=== PATIENT | female | born 1985 | race African-American/Black ===

== ENCOUNTER 2016-09-19 20:57 | Inpatient (IN) ==
[2016-09-19 21:33] LABS: Apearance,Urine CLEAR (Clear); Bacteria,Urine Occasional /HPF (Few); Blood, Urine Negative (Negative); Glucose,Urine (UA) Negative (Negative); Ketones,Urine Negative (Negative); Mucus,Urine Occasional /LPF (Occasional); Nitrite,Urine Negative (Negative); Protein,Urine 30 MG/DL; RBC,Urine <1 /HPF (0-4); Squamous Epithelial Cell,Urine Occasional /HPF (0-10); Urine Color Yellow (Yellow); Urine Specific Gravity 1.019 (1.001-1.035); WBC,Urine 4 /HPF (0-6)
[2016-09-19 21:34] LABS: Bilirubin,Urine Small mg/dL (Negative)
[2016-09-19] MEDS ORDERED: LACTATED RINGERS 250 ML IV ONE (23:21)
[2016-09-19] MEDS ORDERED: MEPERIDINE 50 MG/1 ML VIAL IM PRN (23:21)
[2016-09-19] MEDS ORDERED: BUTORPHANOL 1 MG/ML VIAL IV PRN (23:21)
[2016-09-19 23:49] LABS: Basophils % 0.3 % (0.0-0.8); Eosinophils # 0.1 10*3/uL (0.0-0.87); Eosinophils % 1.6 % (0.00-10.9); Hematocrit 26.3 VOL% (35.7-47.0); Hemoglobin 8.5 GM/DL (12.0-16.0); Immature Granulocytes % 0.3 %; Immature Granulocytes Absolute 0.02 #; Lymphocytes # 1.2 10*3/uL (1.4-4.0); Mean Corpuscular HGB Conc 32.3 GM/DL (32-36); Mean Corpuscular Hemoglobin 24 PG (27-34); Mean Corpuscular Volume 75.6 FL (87-102); Mean Platelet Volume 11.4 FL (9.6-12.0); Monocytes # 0.5 10*3/uL (0.11-0.8); Monocytes % 7.7 % (1.7-12.7); Neutrophils % 73.1 % (38.7-73.9); Platelet Count 101 T/CUMM (130-400); Red Blood Count 3.48 MC/CUMM (3.8-5.5); Red Cell Distribution Width 14.6 % (9.3-17.3); White Blood Count 6.8 T/CUMM (4-12)
[2016-09-19] MEDS: LACTATED RINGERS 1,000 ML IV SCH (23:56)
[2016-09-20] MEDS: ONDANSETRON 4 MG/2 ML VIAL IV PRN ×2 (00:19→10:07)
[2016-09-20] MEDS: MEPERIDINE 50 MG/1 ML VIAL IV PRN ×2 (00:31→10:06)
[2016-09-20] MEDS ORDERED: AMPICILLIN 2,000 MG VIAL IM ONE (02:23)
[2016-09-20] MEDS ORDERED: SODIUM CHLORIDE 0.9% 100 ML IV ONE (02:34)
[2016-09-20] MEDS ORDERED: AMPICILLIN 2,000 MG VIAL IV ONE (03:00)
[2016-09-20] MEDS ORDERED: hydrOXYzine HCL 25 MG/1 ML VIAL IM PRN (03:37)
[2016-09-20] MEDS ORDERED: fentaNYL 2 MCG/ROPIV 0.2% EPID 150 ML EPIDURAL SCH (03:37)
[2016-09-20] MEDS ORDERED: ePHEDrine 50 MG/ML AMP IV PRN (03:37)
[2016-09-20] MEDS ORDERED: PROMETHAZINE 25 MG/1 ML VIAL IM ONE (03:37)
[2016-09-20] MEDS ORDERED: diphenhydrAMINE 50 MG/1 ML VIAL IV PRN ×2 (03:37)
[2016-09-20] MEDS ORDERED: FAMOTIDINE 20 MG/2 ML VIAL IV ONE (03:45)
[2016-09-20] MEDS ORDERED: CITRIC ACID/SODIUM CITRATE 30 ML UDCUP PO ONE (03:45)
[2016-09-20] MEDS: LACTATED RINGERS 1,000 ML IV SCH ×2 (03:54→23:25)
[2016-09-20] MEDS ORDERED: TERBUTALINE 1 MG/1 ML VIAL SUBCUT ONE ×2 (04:40→06:02)
--- NOTE | 2016-09-20 06:29 | Ultrasound Report ---
Exam: US OB limited Date: 09/19/2016 9:44 PM Indication: Rupture of membranes, contractions, reported gestational age 38 weeks 2 days Comparison: None available Findings: Single fetus in cephalic presentation with cardiac activity. Heart rate is regular at 150 bpm. Placenta is anterior with no previa. biometry was not performed Amniotic fluid index: 3.49 cm, compatible with oligohydramnios Estimated weight: Not calculated Cervical length: Cervix was not visualized. structures: Structural survey not performed. Maternal ovaries were not visualized. Ultrasound images were captured and stored. Impression: 1. Single fetus in cephalic presentation with cardiac activity. 2. Oligohydramnios. remote sensing technologist documents discussion of the critical findings with the patient's nurse at the time of the study. PROCEDURE INTERPRETED AT [facility] DEPARTMENT OF RADIOLOGY Final Report Signed by: Randy Shannon
[2016-09-20] MEDS ORDERED: AMPICILLIN INJ 1,000 MG in SODIUM CHLORIDE 0.9% 100 ML IV SCH (06:30)
[2016-09-20] MEDS ORDERED: OXYTOCIN/LR 20 UNIT/1,000 ML BAG IV ONE ×2 (06:33→07:36)
[2016-09-20] MEDS ORDERED: ONDANSETRON 4 MG/2 ML VIAL ONE (06:33)
[2016-09-20] MEDS ORDERED: PROPOFOL 200 MG/20 ML VIAL IV ONE (06:33)
[2016-09-20] MEDS ORDERED: PHENYLEPHRINE 1 MG/10 ML SYRINGE IV ONE (06:33)
[2016-09-20] MEDS ORDERED: SUCCINYLCHOLINE 200 MG/10 ML VIAL ONE (06:33)
[2016-09-20] MEDS ORDERED: OXYTOCIN 10 UNIT/ML VIAL ONE (06:43)
[2016-09-20] MEDS ORDERED: RHO(D) IMMUNE GLOBULIN 300 MCG SYRINGE IM ONE (07:36)
[2016-09-20] MEDS ORDERED: ACETAMINOPHEN 325 MG TABLET PO PRN (07:36)
[2016-09-20] MEDS ORDERED: ONDANSETRON 4 MG/2 ML VIAL IV PRN (07:36)
[2016-09-20] MEDS ORDERED: MAGNESIUM HYDROXIDE SUSP 30 ML UDCUP PO PRN (07:36)
--- NOTE | 2016-09-20 07:36 | Operative Note ---
Date of procedure: 09/20/16 Procedure: Preoperative diagnosis: Persistent bradycardia, spontaneous rupture membranes, actively Postoperative diagnosis: Same Anesthesia:[] General anesthesia Estimated blood loss: [] 300 cc Surgeon: Dr. Augustine Findings: [] Live female infant ,Apgars was 8 at 1 minute 9 at 5 minutes , delivery time was 645, weight was 6 lbs. 5 oz. Complications: None, was occiput posterior, no amniotic fluid Procedure: Low transverse section The patient was taken to the operating suite heart tones were obtained prior to and after regional anesthesia was obtained. She was placed in supine position her abdomen was prepped and draped in usual manner for major abdominal surgery. Through an abdominal incision the skin, subcutaneous, fascial layer and peritoneal the abdomen was entered. The bladder flap was created and a low transverse incision was made.. Fluid was clear and absent X, Apgars, the placenta was delivered and sent to lab for further evaluation. Injected with intrauterine Pitocin. The first layer of the uterus was closed with #1 Vicryl in a continuous locking manner. Close to imbricate the first layer with #1 Vicryl. The peritoneum was approximated with #2-0 Vicryl.[] All the last sponges and instruments were accounted for -2.) #2-0 Vicryl. Fascia was approximated with #0-0 Maxon.. The skin was approximated with dominique. She tolerated procedure well and was taken to recovery room in stable condition. Surgeon / Physician: Judith Augustine Results - Labs CBC & BMP: 09/19/16 23:40 Discharge Plan - Discharge Medications No Action Vits #90/Iron Fum/FA [ Formula Tablet] 1 tablet PO DAILY Ferrous Sulfate [Iron] 1 tablet PO DAILY - Follow Up or Referral - Forms/Instructions
--- NOTE | 2016-09-20 07:37 | Anesthesia Post-Op ---
Anesthesia Post OP - Post Ansesthetic Evaluation Patient seen in post op: Yes Resp: within normal limits CV: within normal limits Mental: within normal limits Temp: within normal limits [id number]: within normal limits Nausea and Vomiting: within normal limits Pain: within normal limits
--- NOTE | 2016-09-20 07:41 | OB/GYN History & Physical ---
History of Present Illness Chief complaint: Spontaneous rupture membranes, at 38 weeks and 6 days History of present illness: Ms. Narayan is a 30 year old female 7 para 5 EDC is 10/01/2016 admitted with spontaneous rupture membranes at 38 weeks and 6 days. Ultrasound demonstrated no amniotic fluid, vertex presentation. Patient developed multiple areas of variable deceleration and subsequently prolonged areas of bradycardia. In light of these findings after trying to resuscitate this patient with positioning, IV fluids, subcu Brethine, and a scalp electrode was unsuccessful. This patient was prepared for emergency section secondary to bradycardia. Home Medications Medication Instructions Recorded Confirmed Type Ferrous Sulfate [Iron] 1 tablet PO DAILY 09/08/16 09/08/16 History Vits #90/Iron Fum/FA 1 tablet PO DAILY 09/08/16 09/08/16 History [ Formula Tablet] Allergies Allergy/AdvReac Type Severity Reaction Status Date / Time No Known Allergies Allergy Verified 07/22/14 06:53 Medical,Surgical,& Family Hx - Medical History Cardio: No history of: Congenital Heart Disease Neurology: No history of: Brain Aneurysm, Seizures Respiratory: No history of: Asthma, Respiratory Problems Musculoskeletal: No history of: Amputation Hematology: No history of: Blood Transfusion Reaction Reproductive: No history of: Abnormal Pap Smear, Breast Cancer, Ectopic , Complication, Reproductive Problems (1 miscarriage) Comment Only: Ovarian Cysts (fibroids myomectomy) Other: No history of: Anesthesia Reactions, Anaphylaxis, Cancer, Eczema, HIV - Surgical History Cardiac Surgeries: Patient Denies: Cardiac Catheterization Thoracic Surgeries: Patient denies;: Organ Transplant, Lobectomy Neurologic Surgeries: Patient denies: Brain Aneurysm, Neurologic Surgery HEENT Surgeries: Patient denies: Eye Surgery, Tonsilectomy & Adenoidectomy Abdominal Surgeries: Surgical HX of: Abdominal Surgery (FIBROIDS), Hernia Repair (at age 6) Reproductive Surgeries: Surgical HX of;: Dilation and Curettage (JUNE 24, 2014) , Tubal Ligation Patient denies;: Section, Genitourinary Surgery, Gynecologic Surgery - Family History Family History: Reports;: Family Cancer (FATHER REANAL), Family Diabetes (DAD), Family Heart Disease (DAD), Family Hypertension (DAD), Family Psychiatric Problems Denies;: Family Anesthesia Reaction, Family Hematology, Family Stroke - Social History Smoking Status: Never smoker Frequency of Alcohol Use: None Type of Drug Use: Marijuana 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 Vitals: Vital Signs Temp Pulse Resp BP Pulse Ox 09/20/16 00:00 68 18 121/60 09/19/16 23:00 98.7 F 78 20 125/77 09/19/16 22:00 72 20 108/58 09/19/16 21:18 97.0 F L 85 20 128/75 100 General appearance: no acute distress - Antepartum / Post Antepartum Exam Cervix - Dilatation: 7 8 cm dilated at the time of the primary section Presentation: Vertex, occiput posterior - Head Head exam: Present: normal inspection - Eye Eye exam: Present: EOMI Pupils: Present: KIMBERLEY - ENT ENT exam: Present: normal exam - Neck Neck exam: Present: normal inspection - Respiratory Respiratory exam: Present: clear to auscultation bilaterally - Breast Breasts: as per HPI Menstruation: as per HPI - Cardiovascular Cardiovascular exam: Present: regular rate and rhythm - GI/Abdominal GI/Abdominal exam: Present: normal bowel sounds - Extremities Exam Extremities exam: Present: normal inspection - Back Exam Back exam: Present: normal inspection - Neurological Exam Neurological exam: Present: alert, oriented X3, normal gait - Psychiatric Psychiatric exam: Present: normal affect - Skin Skin exam: Present: normal color Assessment and Plan (1) Failure to progress in labor Status: Acute Assessment and plan: Primary section, occiput posterior, persistent bradycardia Current Visit: Yes Results - Labs CBC & BMP: 09/19/16 23:40 Quality Measures - VTE Contraindication to Pharmacological VTE Prophylaxis: Clinical assessment deems Pt at low risk, no prophalaxis needed
[2016-09-20 07:52] LABS: Apearance,Urine CLEAR (Clear); Bacteria,Urine Occasional /HPF (Few); Bilirubin,Urine Negative (Negative); Blood, Urine Small mg/dL (Negative); Glucose,Urine (UA) Negative (Negative); Ketones,Urine 20 mg/dL (Negative); Mucus,Urine Many /LPF (Occasional); Nitrite,Urine Negative (Negative); Protein,Urine 30 MG/DL; RBC,Urine 30 /HPF (0-4); Squamous Epithelial Cell,Urine Occasional /HPF (0-10); Urine Specific Gravity 1.028 (1.001-1.035); WBC,Urine 1 /HPF (0-6)
[2016-09-20 07:53] LABS: Urine Color Yellow (Yellow)
[2016-09-20] MEDS: HYDROmorphone 2 MG/1 ML VIAL IV PRN ×4 (10:50→23:07)
[2016-09-20] MEDS ORDERED: HYDROmorphone 2 MG/1 ML VIAL ONE (10:50)
[2016-09-20 14:34] LABS: Basophils % 0.1 % (0.0-0.8); Eosinophils % 0.4 % (0.00-10.9); Hemoglobin 7.1 GM/DL (12.0-16.0); Immature Granulocytes % 0.4 %; Immature Granulocytes Absolute 0.04 #; Lymphocytes # 0.6 10*3/uL (1.4-4.0); Lymphocytes % 6.8 % (21.3-54.2); Mean Corpuscular HGB Conc 32.3 GM/DL (32-36); Mean Corpuscular Hemoglobin 25 PG (27-34); Mean Corpuscular Volume 75.9 FL (87-102); Mean Platelet Volume 10.9 FL (9.6-12.0); Monocytes # 0.5 10*3/uL (0.11-0.8); Neutrophils # 7.8 10*3/uL (1.4-7.4); Neutrophils % 86.3 % (38.7-73.9); Platelet Count 76 T/CUMM (130-400); Red Cell Distribution Width 14.7 % (9.3-17.3); White Blood Count 9.1 T/CUMM (4-12)
[2016-09-20] MEDS ORDERED: SODIUM CHLORIDE 0.9% 250 ML IV PRN (15:12)
[2016-09-20] MEDS ORDERED: SODIUM CHLORIDE 0.9% 1,000 ML IV PRN (15:24)
[2016-09-20] MEDS: SIMETHICONE CHEW 80 MG TABLET PO PRN (19:39)
[2016-09-20] MEDS: DOCUSATE SODIUM 100 MG CAPSULE PO SCH ×2 (21:03→22:38)
[2016-09-20] MEDS: MULTIVITAMIN (PRENATAL) TABLET PO SCH (22:38)
[2016-09-21] MEDS ORDERED: BENZOCAINE/MENTHOL LOZENGE 18/BOX PO PRN (00:46)
[2016-09-21] MEDS ORDERED: diphenhydrAMINE 50 MG/1 ML VIAL IV PRN (00:46)
[2016-09-21] MEDS: HYDROmorphone 2 MG/1 ML VIAL IV PRN (05:08)
[2016-09-21 06:30] LABS: Basophils % 0.2 % (0.0-0.8); Eosinophils # 0.1 10*3/uL (0.0-0.87); Hemoglobin 8.1 GM/DL (12.0-16.0); Immature Granulocytes % 0.6 %; Immature Granulocytes Absolute 0.05 #; Lymphocytes # 0.5 10*3/uL (1.4-4.0); Lymphocytes % 5.7 % (21.3-54.2); Mean Corpuscular HGB Conc 32.4 GM/DL (32-36); Mean Corpuscular Hemoglobin 25 PG (27-34); Mean Corpuscular Volume 77.2 FL (87-102); Mean Platelet Volume 12.5 FL (9.6-12.0); Monocytes # 0.6 10*3/uL (0.11-0.8); Monocytes % 6.5 % (1.7-12.7); Neutrophils # 7.5 10*3/uL (1.4-7.4); Platelet Count 85 T/CUMM (130-400); Red Blood Count 3.24 MC/CUMM (3.8-5.5); Red Cell Distribution Width 14.6 % (9.3-17.3); White Blood Count 8.7 T/CUMM (4-12)
[2016-09-21] MEDS: LACTATED RINGERS 1,000 ML IV SCH (06:30)
[2016-09-21 07:09] LABS: Eosinophils 1 % (0-10); Hypochromasia 1+; Lymphocytes 5 % (20-55); Microcytosis 1+; Platelet Estimate Decreased; Segmented Neutrophils 92 % (50-85); Total Cells Counted 100
[2016-09-21] MEDS: MULTIVITAMIN (PRENATAL) TABLET PO SCH (08:22)
[2016-09-21] MEDS: DOCUSATE SODIUM 100 MG CAPSULE PO SCH ×2 (08:22→22:18)
[2016-09-21] MEDS: FERROUS SULFATE 325 MG TABLET PO SCH ×3 (08:22→22:18)
--- NOTE | 2016-09-21 09:58 | OB/GYN Progress Note ---
Assessment and Plan (1) Status post primary low transverse section Status: Acute Assessment and plan: Initiate routine orders. Current Visit: Yes LANE ATTENDANT - PN: Subj Interval history: Stable with no complaints. Bonding well with . Exam LANE ATTENDANT - Constitutional Vitals: Vital Signs Temp Pulse Pulse Resp BP BP Pulse Ox 09/21/16 07:41 97 F L 62 18 128/79 09/21/16 06:15 18 09/21/16 04:15 97.4 F L 64 20 123/70 09/21/16 02:20 16 09/21/16 00:20 98.2 F 71 16 115/65 96 09/21/16 00:15 98.1 F 78 16 120/69 09/20/16 22:39 98.3 F 60 16 118/73 97 09/20/16 21:39 97.1 F L 63 18 120/68 96 09/20/16 21:09 97.6 F 63 20 123/69 98 09/20/16 21:04 97.4 F L 63 18 132/70 09/20/16 20:59 97.7 F 65 18 122/66 98 09/20/16 20:50 97.5 F L 68 20 120/67 99 09/20/16 20:01 97.6 F 61 20 124/74 98 09/20/16 19:30 97.4 F L 67 20 137/80 09/20/16 18:50 97.4 F L 61 18 125/72 99 09/20/16 17:54 20 09/20/16 17:50 97.2 F L 61 18 121/73 99 09/20/16 17:20 97.2 F L 61 18 124/70 99 09/20/16 17:15 97.2 F L 61 18 126/69 99 09/20/16 17:10 98.0 F 63 18 123/71 99 09/20/16 17:02 98.3 F 62 18 122/69 99 09/20/16 16:00 98.3 F 63 18 116/69 09/20/16 13:25 61 20 121/71 09/20/16 12:25 81 18 116/65 09/20/16 11:25 71 18 114/65 09/20/16 10:55 70 18 129/75 09/20/16 10:25 97.2 F L 73 18 123/75 Pulse Ox 09/21/16 07:41 96 09/21/16 06:15 09/21/16 04:15 96 09/21/16 02:20 09/21/16 00:20 09/21/16 00:15 96 09/20/16 22:39 09/20/16 21:39 09/20/16 21:09 09/20/16 21:04 09/20/16 20:59 09/20/16 20:50 09/20/16 20:01 09/20/16 19:30 96 09/20/16 18:50 09/20/16 17:54 09/20/16 17:50 09/20/16 17:20 09/20/16 17:15 09/20/16 17:10 09/20/16 17:02 09/20/16 16:00 97 09/20/16 13:25 99 09/20/16 12:25 99 09/20/16 11:25 99 09/20/16 10:55 99 09/20/16 10:25 99 General appearance: no acute distress - Gyencological / Post Surgical Post Surgical Exam Lungs: bilateral: normal, crackles/rales, diminished at base, diminished throughout, prolonged expiration, prolonged inspiration, rhonchi, wheezes Chest: Normal S1, Normal S2 Extremities LANE ATTENDANT: Present: normal Abdomen obstetrics progress note: Present: normal appearance Incision OB: Present: normal, intact - Head Head exam: Present: normal inspection - Respiratory Respiratory exam: Present: clear to auscultation bilaterally - Cardiovascular Cardiovascular exam: Present: regular rate and rhythm - GI/Abdominal GI/Abdominal exam: Present: normal bowel sounds, soft - Extremities Exam Extremities exam: Present: normal inspection - Neurological Exam Neurological exam: Present: alert, oriented X3 - Psychiatric Psychiatric exam: Present: normal affect, normal mood - Skin Skin exam: Present: normal color, warm Results - Labs CBC & BMP: 09/21/16 05:45
--- NOTE | 2016-09-21 13:22 | Pathology Report from [facility] ---
[facility] [place] [id number] PATIENT NAME : Stephen Brito ORDERING DR : GLENROY AVILA MD CLINICAL HX: Primary C/S delivery for distress POST-OP DX: Same SPECIMEN INFO: Placenta GROSS DESCRIPTION: Received fresh labeled STEPHEN BRITO & PLACENTA is a 427 gm placenta measuring 18.5 x 15.0 x 2.8 cm. The membranes are pink kelly and translucent. The umbilical cord measures 10.5 cm, contains three vessels and is inserted near the placenta margin. The surface is blue james with a few small areas of subchorionic fibrin noted measuring up to 2.5 x 1.5 cm. The maternal surface is red james and mildly disrupted with no abnormalities appreciated upon sectioning. Section submitted A- membranes and cord, B- and maternal surfaces. DIAGNOSIS FOR STEPHEN BRITO: PLACENTA, DELIVERY: Mature placenta , 427 grams. Very focal acute chorioamnionitis. Trivascular umbilical cord, 10.5 cm in length. Focal subchorionic fibrin. COLLECTED DATE: 09/20/2016 [facility] REPORT DATE: 09/21/2016 ELECTRONICALLY SIGNED BY: Renea Wan M.D. 09/21/2016 - 11:07:44 JULIO
[2016-09-21] MEDS: SIMETHICONE CHEW 80 MG TABLET PO PRN ×2 (15:11→22:18)
[2016-09-21] MEDS: IBUPROFEN 800 MG TABLET PO PRN (16:32)
[2016-09-22] MEDS: DOCUSATE SODIUM 100 MG CAPSULE PO SCH ×2 (08:27→20:21)
[2016-09-22] MEDS: MULTIVITAMIN (PRENATAL) TABLET PO SCH (08:27)
[2016-09-22] MEDS: FERROUS SULFATE 325 MG TABLET PO SCH ×3 (08:27→20:21)
--- NOTE | 2016-09-22 09:32 | OB/GYN Progress Note ---
Assessment and Plan (1) Status post primary low transverse section Status: Acute Assessment and plan: Initiate routine orders. 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 Bonding well with . 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 MANAGER - Constitutional Vitals: Vital Signs Temp Pulse Resp BP Pulse Ox 09/22/16 07:52 20 09/22/16 07:16 97.1 F L 71 20 131/74 98 09/22/16 06:00 18 09/22/16 04:00 96.3 F L 66 18 128/74 97 09/22/16 00:00 96.7 F L 76 18 145/76 95 09/21/16 20:00 97.4 F L 61 18 140/69 99 09/21/16 15:37 97.3 F L 71 20 136/78 98 09/21/16 11:40 97.8 F 63 20 106/64 98 09/21/16 11:14 97.8 F 63 20 122/62 96 General appearance: no acute distress - Antepartum / Post Post Exam Breast: bilateral: normal Abdomen obstetrics: Present: bowel sounds normal Vagina: Present: normal moisture, discharge (Light lochia room) Uterus exam: Present: enlarged - Gyencological / Post Surgical Post Surgical Exam Lungs: bilateral: normal Chest: Normal S1, Normal S2 Extremities AUTOMOTIVE CENTER MANAGER: Present: normal Abdomen obstetrics progress note: Present: normal appearance Incision OB: Present: normal, intact - Respiratory Respiratory exam: Present: clear to auscultation bilaterally - Cardiovascular Cardiovascular exam: Present: regular rate and rhythm - GI/Abdominal GI/Abdominal exam: Present: normal bowel sounds, soft - Extremities Exam Extremities exam: Present: normal inspection - Back Exam Back exam: Present: normal inspection - Neurological Exam Neurological exam: Present: alert, oriented X3 - Psychiatric Psychiatric exam: Present: normal affect, normal mood - Skin Skin exam: Present: normal color, warm Results - Labs CBC & BMP: 09/21/16 05:45
[2016-09-22] MEDS: IBUPROFEN 800 MG TABLET PO PRN (11:58)
[2016-09-22] MEDS ORDERED: MAGNESIUM CITRATE 300 ML BOTTLE PO ONE (14:01)
[2016-09-23] MEDS: IBUPROFEN 800 MG TABLET PO PRN (05:20)
[2016-09-23 07:27] VITALS: BP 145/72
[2016-09-23] MEDS: DOCUSATE SODIUM 100 MG CAPSULE PO SCH (08:46)
[2016-09-23] MEDS: MULTIVITAMIN (PRENATAL) TABLET PO SCH (08:46)
[2016-09-23] MEDS: FERROUS SULFATE 325 MG TABLET PO SCH (08:46)
--- NOTE | 2016-09-23 08:46 | Discharge Summary ---
Hospital Course - Hospital Course Hospital Course: Status post section post op day #3 lungs are clear, cardiac exam benign , incision sites intact Uterus is nice and firm Extremities well with no limits Neurologically grossly intact Status post section We will discharge today follow-up her office in approximately 6 weeks. Diagnosis - Discharge Diagnosis (1) Failure to progress in labor Status: Acute Specialty Discharge - Follow Up or Referrals Follow up with: Judith Augustine MD [Physician] - Discharge Plan - Discharge Data Condition at Discharge: Stable Discharge Diet: advance to your usual diet Activity: resume usual activities as tolerated Hygiene: no restrictions Weight Bearing at Discharge: full weight bearing, weight bear as tolerated Driving: not until seen by doctor Contact your physician if you experience:: fever over 101, Shortness of breath, Bleeding - Discharge Medications New Ferrous Sulfate Tab [Feosol Original Tab] 325 mg PO TID #60 tablet HYDROcodone/ACETAMIN 5-325 [[place] 5-325] 1 tablet PO Q6H PRN #45 tablet PRN Reason: Pain Moderate (4-7) Ibuprofen Tab [Motrin Tab] 800 mg PO Q8H PRN #30 tablet PRN Reason: Pain Severe (8-10) Continue Ferrous Sulfate [Iron] 1 tablet PO DAILY #60 No Action Vits #90/Iron Fum/FA [ Formula Tablet] 1 tablet PO DAILY - Follow Up or Referral Follow Up: Judith Augustine MD [Physician] - - Forms/Instructions Instructions: Section (DC), Depression (GEN), Perineal Care (DC), Bleeding (DC) Exam - Constitutional Vitals: Period Temp Pulse Resp BP Sys/Quinn Pulse Ox Last 24 Hr 97.2 F-98.2 F 55-74 18-20 124-145/64-85 97-98 Discharge Results Procedures and tests throughout hospitalization: Pending Orders 09/19/16 23:21 Urinalysis Routine DS: Provider Date of admission: 09/19/16 23:12 Primary care physician: . No PCP Attending physician on admission: Judith Augustine MD Consults: 09/19/16 23:21 Consult to Anesthesiology [CONS] Routine Consulting Provider: Reason for Anesthesiology: Epidural Consult Comment: Epidural for pain managment 09/20/16 07:37 Consult to Dairy Husbandry Teacher [CONS] Routine Consult Dairy Husbandry Teacher: Breast Feeding Discharging clinician: Judith Augustine MD
== END 2016-09-23 12:15 | disposition home or self-care (01) | DRG 540 ==
LOC: N.LDOUT 20:57 → N.LD 20:59 → N.OB 09-20 10:25
PROVIDERS: ADMIT Obstetrics & Gynecology; ATTEND Obstetrics & Gynecology
PROC: LDCSECT (ICD-10-PCS; 2016-09-20 06:30)